=== PATIENT | female | born 1940 | race Caucasian/White ===

== ENCOUNTER 2022-08-01 08:42 | Day surgery (SDC) | payer MEDICARE, OTHER ==
[~2022-08-01 08:42] MED LIST: Acetaminophen 325 MG Tab PO SCH; Lactated Ringers 1,000 ML IV SCH; Morphine 8 MG, EPINEPHrine 0.3 MG, Cefuroxime 750 MG, Ketorolac 30 MG, Sodium Chloride ... PRN; Pregabalin 25 MG Cap PO SCH; Sodium Chloride 0.9% 10 ML Syringe FLUSH PRN; Sodium Chloride 0.9% 10 ML Syringe FLUSH SCH; oxyCODONE ER 10 MG TAB.ER PO SCH
[2022-08-01] MEDS ORDERED: Tranexamic Acid 1,000 MG/10 ML Vial ONE (09:19)
[2022-08-01] MEDS ORDERED: Vancomycin 1 GM SDV ONE (09:19)
[2022-08-01] MEDS ORDERED: fentaNYL 100 MCG/2 ML SDV IVPUSH PRN (09:20)
[2022-08-01] MEDS ORDERED: HYDROmorphone 0.5 MG/0.5 ML Syringe IVPUSH PRN (09:20)
[2022-08-01] MEDS ORDERED: Ondansetron 4 MG/2 ML SDV IVPUSH PRN (09:20)
[2022-08-01] MEDS ORDERED: Midazolam 1 MG/ML 2 ML SDV ONE (09:30)
[2022-08-01] MEDS ORDERED: fentaNYL 100 MCG/2 ML SDV ONE (09:31)
[2022-08-01] MEDS ORDERED: Propofol 200 MG/20 ML SDV ONE ×2 (09:31)
[2022-08-01] MEDS ORDERED: Lidocaine 1% 2 ML ONE (09:32)
[2022-08-01] MEDS ORDERED: ceFAZolin 2 GM Vial ONE (09:32)
[2022-08-01] MEDS ORDERED: ePHEDrine 50 MG/ML SDV ONE (11:00)
== END 2022-08-01 15:10 | disposition home or self-care (01) ==
LOC: JD.SDS 08:42
PROVIDERS: ATTEND Orthopaedic Surgery
DX: M16.11 Unilateral primary osteoarthritis, right hip (principal); G89.29 Other chronic pain; E78.2 Mixed hyperlipidemia; M85.80 Other specified disorders of bone density and structure, unspecified site; I10 Essential (primary) hypertension; Z88.5 Allergy status to narcotic agent; Z79.899 Other long term (current) drug therapy; Z90.710 Acquired absence of both cervix and uterus; Z90.721 Acquired absence of ovaries, unilateral; Z98.890 Other specified postprocedural states; Z79.82 Long term (current) use of aspirin
CPT/HCPCS: 0055T; 27130; 36415; 73501; 86850; 86870; 86900; 86901; 86905; 87641; 97161; C1713; C1776; J0171; J0690; J0697; J1885; J2250; J2270; J2704; J3370; J7120; 01214; 99100; J3010; J3490

== ENCOUNTER 2024-11-24 18:52 | Emergency (ER) | payer MEDICARE, OTHER | END 2024-11-24 20:00 | disposition home or self-care (01) | LOC: JD.ED 18:52 | DX: S42.212A Unspecified displaced fracture of surgical neck of left humerus, initial encounter for closed fracture (principal); E78.00 Pure hypercholesterolemia, unspecified; Z90.710 Acquired absence of both cervix and uterus; Z79.82 Long term (current) use of aspirin; Z79.899 Other long term (current) drug therapy; W10.9XXA Fall (on) (from) unspecified stairs and steps, initial encounter | CPT/HCPCS: 73030-26-LT; 73030-LT; 99283 ==